=== PATIENT | female | born 1925 | race Caucasian/White ===

== ENCOUNTER 2016-08-18 | Outpatient (CLI) | END 2016-08-18 10:28 | disposition critical access hospital (66) | CPT/HCPCS: A0425; A0427 ==

== ENCOUNTER 2016-08-18 11:05 | Emergency (ER) | payer MEDICARE ==
[2016-08-18] MEDS ORDERED: cefTRIAXone 1 GM in SODIUM CHLORIDE 0.9% MINIBAG 100 ML IV STA (13:31)
[2016-08-18] MEDS ORDERED: AZITHROMYCIN 250 MG TABLET PO STA (13:32)
[2016-08-18] MEDS ORDERED: AZITHROMYCIN 250 MG TABLET PO ONE (13:39)
[2016-08-18] MEDS ORDERED: cefTRIAXone 1 GM VIAL ONE (13:39)
== END 2016-08-18 14:38 | disposition home or self-care (01) ==
DX: J18.9 Pneumonia, unspecified organism (principal); B37.2 Candidiasis of skin and nail; I10 Essential (primary) hypertension; E11.9 Type 2 diabetes mellitus without complications; Z79.84 Long term (current) use of oral hypoglycemic drugs; E03.9 Hypothyroidism, unspecified; F03.90 Unspecified dementia, unspecified severity, without behavioral disturbance, psychotic disturbance, mood disturbance, and anxiety; Z79.82 Long term (current) use of aspirin
CPT/HCPCS: 36415; 71020; 80053; 81001; 83690; 85025; 87077; 87086; 87181; 87275; 87276; 96365; 99284; A9270

== ENCOUNTER 2016-09-05 14:13 | Emergency (ER) | payer MEDICARE | END 2016-09-05 17:16 | disposition home or self-care (01) | DX: K57.30 Diverticulosis of large intestine without perforation or abscess without bleeding (principal); J18.9 Pneumonia, unspecified organism; S70.321A Blister (nonthermal), right thigh, initial encounter; X58.XXXA Exposure to other specified factors, initial encounter; I10 Essential (primary) hypertension; E11.9 Type 2 diabetes mellitus without complications; Z79.84 Long term (current) use of oral hypoglycemic drugs; E03.9 Hypothyroidism, unspecified; F03.90 Unspecified dementia, unspecified severity, without behavioral disturbance, psychotic disturbance, mood disturbance, and anxiety; Z86.73 Personal history of transient ischemic attack (TIA), and cerebral infarction without residual deficits; Z79.82 Long term (current) use of aspirin ==

== ENCOUNTER 2016-11-15 15:53 | Inpatient (IN) | payer MEDICARE ==
[2016-11-15] MEDS ORDERED: SODIUM CHLORIDE 0.9% 1,000 ML IV ONE (16:58)
[2016-11-15] MEDS ORDERED: ONDANSETRON 4 MG/2 ML VIAL IVP PRN (20:42)
[2016-11-15] MEDS ORDERED: SODIUM CHLORIDE FLUSH 0.9% 10 ML SYRINGE IVP PRN (20:42)
[2016-11-15] MEDS: SODIUM CHLORIDE 0.9% 1,000 ML IV SCH (21:42)
[2016-11-15] MEDS: SODIUM CHLORIDE FLUSH 0.9% 10 ML SYRINGE IVP SCH (21:42)
[2016-11-15] MEDS: HEPARIN 5,000 UNIT/ML VIAL SUBQ SCH (22:13)
[2016-11-16] MEDS: INSULIN REGULAR HUMAN 100 UNIT/1 ML 10 ML MDV SUBQ SCH ×4 (00:07→19:00)
[2016-11-16] MEDS: SODIUM CHLORIDE 0.9% 1,000 ML IV SCH ×2 (04:44→14:57)
[2016-11-16] MEDS: SODIUM CHLORIDE FLUSH 0.9% 10 ML SYRINGE IVP SCH ×3 (04:49→20:52)
[2016-11-16] MEDS: POLYETHYLENE GLYCOL 3350 17 GM PACKET PO SCH (10:55)
[2016-11-16] MEDS: DOCUSATE SODIUM 250 MG CAPSULE PO SCH (10:55)
[2016-11-16] MEDS: SENNA 8.6 MG TABLET PO SCH (10:55)
[2016-11-16] MEDS: ACETAMINOPHEN 325 MG TABLET PO PRN (10:55)
[2016-11-16] MEDS: HEPARIN 5,000 UNIT/ML VIAL SUBQ SCH ×2 (10:56→20:51)
[2016-11-17] MEDS: INSULIN REGULAR HUMAN 100 UNIT/1 ML 10 ML MDV SUBQ SCH ×2 (00:52→06:05)
[2016-11-17] MEDS: SODIUM CHLORIDE 0.9% 1,000 ML IV SCH (02:00)
[2016-11-17] MEDS: SODIUM CHLORIDE FLUSH 0.9% 10 ML SYRINGE IVP SCH ×3 (05:07→20:40)
[2016-11-17] MEDS ORDERED: HYDROcod/ACETAM 5/325 MG TABLET PO PRN (07:18)
[2016-11-17] MEDS: METOPROLOL TARTRATE 25 MG TABLET PO SCH ×2 (08:31→20:40)
[2016-11-17] MEDS: ASPIRIN EC 81 MG TABLET PO SCH (08:32)
[2016-11-17] MEDS: HEPARIN 5,000 UNIT/ML VIAL SUBQ SCH ×2 (08:32→20:40)
[2016-11-17] MEDS: LEVOTHYROXINE 25 MCG TABLET PO SCH (08:32)
[2016-11-17] MEDS: SERTRALINE 50 MG TABLET PO SCH (08:32)
[2016-11-17] MEDS: INSULIN ASPART 300 UNIT/3 ML PEN SUBQ SCH ×4 (10:27→21:49)
[2016-11-17] MEDS: DOCUSATE SODIUM 250 MG CAPSULE PO SCH (10:27)
[2016-11-17] MEDS: POLYETHYLENE GLYCOL 3350 17 GM PACKET PO SCH (10:28)
[2016-11-17] MEDS: SENNA 8.6 MG TABLET PO SCH (10:28)
[2016-11-17] MEDS: ACETAMINOPHEN 325 MG TABLET PO PRN (16:34)
[2016-11-18] MEDS: ACETAMINOPHEN 325 MG TABLET PO PRN ×2 (00:03→09:10)
[2016-11-18] MEDS: LEVOTHYROXINE 25 MCG TABLET PO SCH (06:06)
[2016-11-18] MEDS: SODIUM CHLORIDE FLUSH 0.9% 10 ML SYRINGE IVP SCH ×2 (06:06→14:42)
[2016-11-18] MEDS: INSULIN ASPART 300 UNIT/3 ML PEN SUBQ SCH ×2 (08:06→12:00)
[2016-11-18] MEDS: METOPROLOL TARTRATE 25 MG TABLET PO SCH (09:00)
[2016-11-18] MEDS: SENNA 8.6 MG TABLET PO SCH (09:10)
[2016-11-18] MEDS: ASPIRIN EC 81 MG TABLET PO SCH (09:10)
[2016-11-18] MEDS: SERTRALINE 50 MG TABLET PO SCH (09:10)
[2016-11-18] MEDS: DOCUSATE SODIUM 250 MG CAPSULE PO SCH (09:11)
[2016-11-18] MEDS: POLYETHYLENE GLYCOL 3350 17 GM PACKET PO SCH (09:11)
[2016-11-18] MEDS: HEPARIN 5,000 UNIT/ML VIAL SUBQ SCH (09:30)
[2016-11-18] MEDS ORDERED: amLODIPine 5 MG TABLET PO ONE (11:30)
== END 2016-11-18 16:25 | disposition home or self-care (01) | DRG 689 ==
DX: N39.0 Urinary tract infection, site not specified (principal); R41.82 Altered mental status, unspecified; I10 Essential (primary) hypertension; G93.40 Encephalopathy, unspecified; I69.351 Hemiplegia and hemiparesis following cerebral infarction affecting right dominant side; I69.320 Aphasia following cerebral infarction; B96.89 Other specified bacterial agents as the cause of diseases classified elsewhere; F03.90 Unspecified dementia, unspecified severity, without behavioral disturbance, psychotic disturbance, mood disturbance, and anxiety; R13.10 Dysphagia, unspecified; Z87.01 Personal history of pneumonia (recurrent); E11.9 Type 2 diabetes mellitus without complications; E03.9 Hypothyroidism, unspecified; E86.0 Dehydration; R00.1 Bradycardia, unspecified; T44.7X5A Adverse effect of beta-adrenoreceptor antagonists, initial encounter; Z66 Do not resuscitate; Z16.12 Extended spectrum beta lactamase (ESBL) resistance; Z79.84 Long term (current) use of oral hypoglycemic drugs; Z79.82 Long term (current) use of aspirin